=== PATIENT | male | born 1965 | race Hispanic/Latino ===

== ENCOUNTER → 2019-08-22 | Outpatient (CLI) | payer OTHER ==
--- NOTE | 2019-08-22 13:12 | Diagnostic Imaging Report ---
EXAMINATION: HEEL RT INDICATION: Healed pain COMPARISON: None FINDINGS: AP and lateral images of the right heel were obtained. No acute fracture or dislocation. Alignment is anatomic. Prominent plantar calcaneal spur. Shania deformity of posterior calcaneus. Posterior subtalar joint osteophyte formation. IMPRESSION: No acute osseous injury. Prominent plantar calcaneal spur, Shania deformity of posterior calcaneus, and bony proliferative changes of the posterior subtalar joint. Signed by: Roberth Jones MD on 08/22/2019 1:09 PM
== END ==
LOC: RAD 11:55
PROVIDERS: ATTEND Family Medicine
DX: M79.671 Pain in right foot (principal); M89.8X7 Other specified disorders of bone, ankle and foot

== ENCOUNTER 2024-03-14 13:10 | Inpatient (IN) | payer BC, OTHER ==
[~2024-03-14] VITALS: Ht 157.5 cm; Wt 47.6 kg
[2024-03-14] MEDS ORDERED: IOPAMIDOL 370 MG/ML 100 ML INFUS..BTL INJ ONE (14:51)
[2024-03-14] MEDS ORDERED: CEFEPIME HCL 1 GM VIAL ONE (16:31)
[2024-03-14] MEDS ORDERED: SODIUM CHLORIDE 0.9% 1000ML 1,000 ML ONE (16:31)
[2024-03-14] MEDS: SODIUM CHLORIDE 0.9% 1000ML 1,000 ML IV ONE (16:38)
[2024-03-14 17:14] VITALS: BP 134/85; PULSE 20; RESP 20; TEMP 97.5; O2SAT 97
[2024-03-14] MEDS: SODIUM CHLORIDE 0.9% 1000ML 1,000 ML IV SCH (17:54)
[2024-03-14 18:01] VITALS: BP 134/85; PULSE 20; RESP 20; TEMP 97.5; O2SAT 97
[2024-03-14 18:06] VITALS: BP 134/85; PULSE 20; RESP 20; TEMP 97.5; O2SAT 97
[2024-03-14] MEDS ORDERED: MELATONIN 3 MG TAB PO PRN (18:45)
[2024-03-14] MEDS ORDERED: GLYCOPYRROLATE PO (18:45)
[2024-03-14] MEDS ORDERED: SIMETHICONE 80 MG CHEW PO PRN (18:45)
[2024-03-14] MEDS ORDERED: ACETAMINOPHEN 325 MG TAB PO PRN (18:45)
[2024-03-14] MEDS ORDERED: ALBUTEROL/IPRATROPIUM 3 ML NEB NEB PRN (18:45)
[2024-03-14] MEDS ORDERED: SERTRALINE HCL50 MG PO (18:45)
[2024-03-14] MEDS ORDERED: OLMESARTAN-HCT1 EAC1 PO (18:45)
[2024-03-14] MEDS ORDERED: ONDANSETRON HCL INJ 2MG/ML 2ML 2 MG/ML VIAL IV PRN (18:45)
[2024-03-14] MEDS ORDERED: GUAIFENESIN/DEXTROMETHORPHAN LIQD 5 ML UDC NG PRN (18:45)
[2024-03-14] MEDS ORDERED: DOCUSATE SODIUM 100 MG CAP PO PRN (18:45)
[2024-03-14 20:00] VITALS: BP 134/85; PULSE 20; RESP 20; TEMP 97.5; O2SAT 97
[2024-03-14] MEDS: BENZONATATE 100 MG CAP PO SCH (21:00)
[2024-03-14 21:09] VITALS: BP 154/105; PULSE 97; RESP 19; TEMP 97.8; O2SAT 97
[2024-03-15] VITALS (53 sets, daily range): BP systolic 72–188; BP diastolic 59–133; PULSE 78–118; RESP 12–20; TEMP 97.7–100.1; O2SAT 95–100
[2024-03-15 06:55] LABS: BASOPHILS % 0.3 % (0.0-1.0); EOSINOPHILS # (AUTO) 0.1 (0.0-0.4); EOSINOPHILS % 0.9 % (0.0-6.0); HEMATOCRIT 44.6 % (38.2-49.6); HEMOGLOBIN 14.2 g/dL (14.0-18.0); LYMPHOCYTES # (AUTO) 0.9 (1.0-3.2); LYMPHOCYTES % 9.4 % (18.0-39.1); MEAN CORPUSCULAR HEMOGLOBIN 30.4 pg (28-32); MEAN CORPUSCULAR HGB CONC 31.8 g/dL (31-35); MEAN CORPUSCULAR VOLUME 95.5 fL (81-99); MONOCYTES % 9.8 % (4.4-11.3); NEUTROPHILS # (AUTO) 7.9 (2.1-6.9); NEUTROPHILS % 79.4 % (38.7-80.0); PLATELET COUNT 180 x10e3/uL (140-360); RED BLOOD COUNT 4.67 x10e6/uL (4.3-5.7); RED CELL DISTRIBUTION WIDTH 12.5 % (11.7-14.4); WHITE BLOOD COUNT 9.98 x10e3/uL (4.8-10.8)
[2024-03-15 07:11] LABS: ANION GAP 11.9 mmol/L (8-16); CALCIUM 9.1 mg/dL (8.4-10.2); CREATININE, SERUM 0.56 mg/dL (0.72-1.25); POTASSIUM 3.9 mmol/L (3.5-5.1)
[2024-03-15] MEDS: LORATADINE 10 MG TAB PO SCH (09:17)
[2024-03-15] MEDS: FAMOTIDINE 20 MG TAB PO SCH (09:17)
[2024-03-15] MEDS: METOPROLOL TARTRATE INJ 1 MG/ML VIAL IV PRN (09:23)
[2024-03-15] MEDS ORDERED: METHYLPREDNISOLONE SOD SUCC 40 MG/ML VIAL 1ML IV SCH (10:45)
[2024-03-15 12:05] LABS: ABG PCO2 > 130 mmHg (35-45); ABG PH 7.11 (7.35-7.45); ABG PO2 309 mmHg (80-105)
[2024-03-15] MEDS: PROPOFOL IV EMULSION 10MG/ML 100 ML IV PRN (12:50)
[2024-03-15] MEDS: PROPOFOL IV EMULSION 10MG/ML 100 ML ONE (12:51)
[2024-03-15 12:54] LABS: ABG HCO3 36 mmol/L (22-26); ABG PCO2 44 mmHg (35-45); ABG PH 7.52 (7.35-7.45); ABG PO2 52 mmHg (80-105); ABG TCO2 37
[2024-03-15] MEDS ORDERED: ETOMIDATE 2 MG/ML 10 ML INJ IV ONE (13:46)
[2024-03-15] MEDS ORDERED: NOREPINEPHRINE 8 MG/D5W 250 ML 250 ML ONE (14:23)
[2024-03-15] MEDS: NOREPINEPHRINE 8 MG/D5W 250 ML 250 ML IV SCH (14:35)
[2024-03-15] MEDS: LACTATED RINGER'S 1,000 ML INJ ONE (14:36)
[2024-03-15] MEDS: ENOXAPARIN SOD INJ 40 MG/0.4 ML SYR SC SCH (16:12)
[2024-03-15] MEDS: ALBUMIN 25% 25GM 100ML 100 ML IV ONE (17:44)
[2024-03-15] MEDS ORDERED: ALBUMIN 25% 25GM 100ML 0.25 GM/ML BTL IV ONE (17:45)
[2024-03-15] MEDS: DEXMEDETOMIDINE 400MCG/NS100ML 100 ML IV PRN (18:42)
[2024-03-16] VITALS (91 sets, daily range): BP systolic 93–127; BP diastolic 58–87; PULSE 62–93; RESP 12–19; TEMP 98.3–99.1; O2SAT 100
[2024-03-16 06:26] LABS: BASOPHILS % 0.3 % (0.0-1.0); EOSINOPHILS % 0.2 % (0.0-6.0); HEMATOCRIT 34.1 % (38.2-49.6); HEMOGLOBIN 11.1 g/dL (14.0-18.0); LYMPHOCYTES # (AUTO) 1.6 (1.0-3.2); LYMPHOCYTES % 15.4 % (18.0-39.1); MEAN CORPUSCULAR HEMOGLOBIN 29.8 pg (28-32); MEAN CORPUSCULAR HGB CONC 32.6 g/dL (31-35); MEAN CORPUSCULAR VOLUME 91.4 fL (81-99); MONOCYTES # (AUTO) 0.8 (0.2-0.8); MONOCYTES % 7.9 % (4.4-11.3); NEUTROPHILS % 75.8 % (38.7-80.0); PLATELET COUNT 145 x10e3/uL (140-360); RED BLOOD COUNT 3.73 x10e6/uL (4.3-5.7); RED CELL DISTRIBUTION WIDTH 12.2 % (11.7-14.4); WHITE BLOOD COUNT 10.59 x10e3/uL (4.8-10.8)
[2024-03-16 06:30] LABS: ABG HCO3 34 mmol/L (22-26); ABG PCO2 35 mmHg (35-45); ABG PO2 162 mmHg (80-105); ABG TCO2 35
[2024-03-16 06:31] LABS: CALCIUM 8.4 mg/dL (8.4-10.2); CREATININE, SERUM 0.6 mg/dL (0.72-1.25)
[2024-03-16] MEDS: LORAZEPAM INJ 2 MG/ML VIAL IV ONE (07:43)
[2024-03-16] MEDS: POTASSIUM CHLORIDE 20MEQ/100ML 200 ML IV ONE (08:16)
[2024-03-16 08:54] LABS: LYMPHOCYTES % (MANUAL) 17 % (19-48); MONOCYTES % (MANUAL) 5 % (3.4-9.0); NEUTROPHILS % (MANUAL) 78 % (40-74); PLATELET ESTIMATE SLIGHTLY DECREASED; PLATELET MORPHOLOGY COMMENT NORMAL; RBC MORPHOLOGY COMMENT NORMAL
[2024-03-16 10:14] LABS: ABG HCO3 32 mmol/L (22-26); ABG PCO2 45 mmHg (35-45); ABG PH 7.46 (7.35-7.45); ABG PO2 193 mmHg (80-105); ABG TCO2 34
[2024-03-16] MEDS: LORAZEPAM INJ 2 MG/ML VIAL IV SCH (12:37)
[2024-03-17] VITALS (63 sets, daily range): BP systolic 73–136; BP diastolic 56–87; PULSE 59–120; RESP 12–23; TEMP 97.8–98.5; O2SAT 97–100
[2024-03-17 07:03] LABS: BASOPHILS % 0.2 % (0.0-1.0); EOSINOPHILS # (AUTO) 0.1 (0.0-0.4); HEMATOCRIT 32.6 % (38.2-49.6); HEMOGLOBIN 11.1 g/dL (14.0-18.0); LYMPHOCYTES # (AUTO) 1.4 (1.0-3.2); LYMPHOCYTES % 12.3 % (18.0-39.1); MEAN CORPUSCULAR HEMOGLOBIN 30.4 pg (28-32); MEAN CORPUSCULAR VOLUME 89.3 fL (81-99); MONOCYTES # (AUTO) 0.9 (0.2-0.8); MONOCYTES % 8.1 % (4.4-11.3); NEUTROPHILS # (AUTO) 8.9 (2.1-6.9); PLATELET COUNT 131 x10e3/uL (140-360); RED BLOOD COUNT 3.65 x10e6/uL (4.3-5.7); RED CELL DISTRIBUTION WIDTH 12.6 % (11.7-14.4); WHITE BLOOD COUNT 11.35 x10e3/uL (4.8-10.8)
[2024-03-17 07:21] LABS: ALBUMIN 2.3 g/dL (3.5-5.0); ALBUMIN/GLOBULIN RATIO 0.8 (0.8-2.0); ANION GAP 11.6 mmol/L (8-16); BILIRUBIN,TOTAL 0.7 mg/dL (0.2-1.2); CREATININE, SERUM 0.53 mg/dL (0.72-1.25); POTASSIUM 3.6 mmol/L (3.5-5.1); TOTAL PROTEIN 5.2 g/dL (6.5-8.1)
[2024-03-17] MEDS ORDERED: Morphine 2mg Syringe 2 MG/ML SYR ONE (17:54)
== END 2024-03-17 17:07 | disposition hospice, inpatient (51) | DRG 208 ==
LOC: FSED 13:35 → ERHOLD 15:13 → MED/SURG 17:12 → ICU 03-15 11:26
PROVIDERS: ADMIT Internal Medicine; ATTEND Internal Medicine
PROC: 0BH17EZ Insertion of Endotracheal Airway into Trachea, Via Natural or Artificial Opening (ICD-10-PCS; principal; 2024-03-15)
PROC: 5A1945Z Respiratory Ventilation, 24-96 Consecutive Hours (ICD-10-PCS; 2024-03-15)
PROC: 02HV33Z Insertion of Infusion Device into Superior Vena Cava, Percutaneous Approach (ICD-10-PCS; 2024-03-15)
PROC: B548ZZA Ultrasonography of Superior Vena Cava, Guidance (ICD-10-PCS; 2024-03-15)
PROC: 3E0G76Z Introduction of Nutritional Substance into Upper GI, Via Natural or Artificial Opening (ICD-10-PCS; 2024-03-15)
PROC: 3E033XZ Introduction of Vasopressor into Peripheral Vein, Percutaneous Approach (ICD-10-PCS; 2024-03-15)
PROC: 4A043R1 Measurement of Venous Saturation, Peripheral, Percutaneous Approach (ICD-10-PCS; 2024-03-15)
PROC: 4A043R1 Measurement of Venous Saturation, Peripheral, Percutaneous Approach (ICD-10-PCS; 2024-03-15)
PROC: 4A043R1 Measurement of Venous Saturation, Peripheral, Percutaneous Approach (ICD-10-PCS; 2024-03-16)
PROC: 4A043R1 Measurement of Venous Saturation, Peripheral, Percutaneous Approach (ICD-10-PCS; 2024-03-16)
DX: J18.9 Pneumonia, unspecified organism (principal); J96.21 Acute and chronic respiratory failure with hypoxia; J96.22 Acute and chronic respiratory failure with hypercapnia; E43 Unspecified severe protein-calorie malnutrition; G12.21 Amyotrophic lateral sclerosis; Z68.1 Body mass index [BMI] 19.9 or less, adult; J20.9 Acute bronchitis, unspecified; Z93.1 Gastrostomy status; R13.12 Dysphagia, oropharyngeal phase; Z71.3 Dietary counseling and surveillance; E87.6 Hypokalemia; I10 Essential (primary) hypertension; F41.9 Anxiety disorder, unspecified; Z51.5 Encounter for palliative care; Z11.52 Encounter for screening for COVID-19; Z79.899 Other long term (current) drug therapy
CPT/HCPCS: 0223U; 36415; 36569; 36600; 71045; 71260; 80048; 80053; 82805; 83880; 84134; 84484; 85025; 87040; 93005; 94003; 94760; 94799; 99285; J0692; J0696; J1650; J2060; J2270; J3480; J7030; J7050; P9047; Q9967

== ENCOUNTER 2024-03-17 16:45 | Inpatient (IN) | payer OTHER ==
[~2024-03-17 16:45] MED LIST: GLYCOPYRROLATE PO; OLMESARTAN-HCT1 EAC1 PO; SERTRALINE HCL50 MG PO
[2024-03-17] MEDS ORDERED: LORAZEPAM INJ 2 MG/ML VIAL IV PRN (17:30)
[2024-03-17] MEDS ORDERED: HYOSCYAMINE 0.125 MG TAB SL PRN (17:30)
[2024-03-17] MEDS ORDERED: ACETAMINOPHEN 650 MG SUPP PR PRN (17:30)
[2024-03-17] MEDS ORDERED: ONDANSETRON HCL INJ 2MG/ML 2ML 2 MG/ML VIAL IV PRN (17:30)
[2024-03-17] MEDS ORDERED: BISACODYL 10 MG SUPP PR PRN (17:30)
[2024-03-17] MEDS: Morphine 2mg Syringe 2 MG/ML SYR IV PRN (17:54)
[2024-03-17 18:00] VITALS: PULSE 118; RESP 24; O2SAT 100
[2024-03-17] MEDS ORDERED: MIDAZOLAM HCL 2 MG/2 ML VIAL ONE (18:06)
[2024-03-17] MEDS: MIDAZOLAM HCL 2 MG/2 ML VIAL IV ONE (18:14)
[2024-03-17] MEDS: HYDROMORPHONE 1MG/1ML INJ IV STA (18:27)
== END 2024-03-17 21:57 | disposition expired | DRG 951 ==
LOC: IMCU 16:45 → ICU 17:07
PROVIDERS: ADMIT Internal Medicine; ATTEND Internal Medicine
DX: Z51.5 Encounter for palliative care (principal); J96.21 Acute and chronic respiratory failure with hypoxia; J18.9 Pneumonia, unspecified organism; J96.22 Acute and chronic respiratory failure with hypercapnia; E43 Unspecified severe protein-calorie malnutrition; G12.21 Amyotrophic lateral sclerosis; Z68.1 Body mass index [BMI] 19.9 or less, adult; I10 Essential (primary) hypertension; R13.12 Dysphagia, oropharyngeal phase; Z93.1 Gastrostomy status
CPT/HCPCS: 94799; J1170; J2250